=== PATIENT | male | born 1960 | race Caucasian/White ===

== ENCOUNTER 2017-10-03 19:55 | Inpatient (IN) | payer OTHER ==
[~2017-10-03] VITALS: Ht 182.9 cm; Wt 72.6 kg
--- NOTE | 2017-10-04 01:45 | NUR ---
PRE-ADMISSION NOTE VS BP-132/96 P-106 T- 98.1 R-18 PA-0/10. SpO2 AT 93% IN RA. PATIENT AMBULATORY. SPEECH IS CLEAR , DELAYED IN RESPONSE BUT ABLE TO ANSWER QUESTIONS APPROPRIATELY. PATIENT DOES NOT HAVE ALLERGY TO FOOD OR MEDICATION. NO SEIZURE HISTORY. PATIENT IS HERE FOR ALCOHOL (VODKA). WILL CONTINUE ADMISSION ON 3RD FLOOR.
--- NOTE | 2017-10-04 02:07 | NUR ---
ADMISSION NOTE PATIENT IS A 56 YEAR OLD MALE WHO PRESENTS TO [facility] [place] FOR MEDICALLY SUPERVISED WITHDRAWAL FROM ALCOHOL (VODKA). HEIGHT IS 6'0 AND WEIGHT IS 160 LBS. BODY CHECK DONE . SKIN WARM TO TOUCH. NO SKIN BREAKDOWN. LUNGS CLEAR AND ABDOMEN SOFT AND NON-DISTENDED. BOWEL SOUNDS ACTIVE IN ALL QUADRANT. RESPIRATION EVEN AND UNLABORED. NO SOB. PATIENTS PULSE AND O2 CHECKED. P-100 AND SpO2- 98% IN RA. PATIENT REPORTS PMH OF ANXIETY, LEFT HIP AND REPLACEMENT . NO SEIZURE HISTORY. PATIENT REQUESTED TO BE FULL CODE AND REGULAR DIET. PATIENT IS SEEKING FOR TREATMENT BECAUSE I WANT TO MAKE IT RIGHT, HE STATES. PATIENTS DRUG OF CHOICE IS ALCOHOL (VODKA). HE STARTED DRINKING AT AGE 16. HE DRINKS 375 ML DAILY FOR THE PAST 10 WEEKS. LAST DRINK WAS 375 ML OF VODKA PRIOR TO ADMISSION. HE WAS IN [facility] LAST YEAR FOR 30 DAYS. 8 MONTHS IS HIS LONGEST PERIOD OF SOBRIETY WHICH WAS LAST YEAR. PATIENT DOES NOT HAVE PCP. HE LIVES WITH A FRIEND AND HE'S IN RESTAURANT BUSINESS. PATIENT DOES NOT SMOKE CIGARETTE. PATIENT DOESN'T HAVE HOME MEDICATION. PATIENT PRESENTS WITH DEPRESSED MOOD, DISHEVELED, UNKEMPT, RESTRICTED, UNSHAVEN, FLUSHED FACE, ANXIETY, INSOMNIA AND FATIGUE. CIWA 6. PATIENT ORIENTED TO SURROUNDINGS AND HOW TO USE CALL LIGHT. EXPLAINED UNIT, SMOKING POLICIES AND [id number] VS. SAFETY MEASURES IN PLACE. CALL LIGHT IN REACH. WILL CONTINUE TO MONITOR. Addendum: 10/04/17 at 0632 by RODNEY YOUSSEF LVN PATIENT WAS INTOXICATED UPON ADMISSION .
[2017-10-04] MEDS ORDERED: MAG HYDROX/AL HYDROX/SIMETH 30 ML LIQUID UDC PO PRN (02:15)
[2017-10-04] MEDS ORDERED: LOPERAMIDE HCL 2 MG CAPSULE PO PRN ×2 (02:15)
[2017-10-04] MEDS ORDERED: MIRALAX 17 GM POWD.PACK PO PRN (02:15)
[2017-10-04] MEDS ORDERED: MAGNESIUM HYDROXIDE 30 ML LIQUID UDC PO PRN (02:15)
[2017-10-04] MEDS ORDERED: THIAMINE HCL 200 MG/2 ML VIAL IM ONE (02:15)
[2017-10-04] MEDS ORDERED: ONDANSETRON 4 MG/2 ML VIAL IM PRN (02:15)
[2017-10-04] MEDS ORDERED: LORAZEPAM 1 MG TABLET PO PRN (02:15)
[2017-10-04] MEDS ORDERED: DICYCLOMINE HCL 20 MG TABLET PO PRN (02:15)
[2017-10-04] MEDS ORDERED: ACETAMINOPHEN 325 MG TABLET PO PRN (02:15)
[2017-10-04] MEDS ORDERED: ONDANSETRON ODT 4 MG TAB.RAPDIS SL PRN (02:15)
[2017-10-04] MEDS ORDERED: IBUPROFEN 400 MG TABLET PO PRN (02:15)
[2017-10-04] MEDS ORDERED: HYDROXYZINE PAMOATE 25 MG CAPSULE PO PRN (02:15)
[2017-10-04] MEDS ORDERED: LORAZEPAM 2 MG/1 ML VIAL IM PRN (02:15)
[2017-10-04 02:23] LABS: BASOPHILS # (AUTO) 0.1 K/uL (0.0-8.0); BASOPHILS % (AUTO) 2.3 % (0.0-2.0); EOSINOPHILS # (AUTO) 0.1 K/uL (0.0-0.7); EOSINOPHILS % (AUTO) 1.3 % (0.0-7.0); HEMATOCRIT 47.2 % (36.7-47.1); HEMOGLOBIN 16.2 g/dL (12.5-16.3); LYMPHOCYTES # (AUTO) 2.9 K/uL (20.0-40.0); LYMPHOCYTES % (AUTO) 49.3 % (20.5-51.5); MEAN CORPUSCULAR HEMOGLOBIN 33.4 uug (23.8-33.4); MEAN CORPUSCULAR HGB CONC 34 g/dL (32.5-36.3); MEAN CORPUSCULAR VOLUME 97.4 fL (73.0-96.2); MONOCYTES # (AUTO) 0.8 K/uL (2.0-10.0); MONOCYTES % (AUTO) 12.9 % (0.0-11.0); NEUTROPHILS % (AUTO) 34.2 % (38.5-71.5); PLATELET COUNT (AUTO) 382 K/uL (152-348); RED BLOOD CELL COUNT(AUTO) 4.85 MIL/uL (4.06-5.63)
[2017-10-04 02:36] LABS: BILIRUBIN,TOTAL 0.4 mg/dL (0.2-1.0); CREATININE 0.9 mg/dL (0.6-1.3); MAGNESIUM 2.1 mg/dL (1.8-2.4); POTASSIUM 4.4 mmol/L (3.5-5.1); TOTAL PROTEIN, SERUM 8.7 g/dL (6.4-8.2)
[2017-10-04] MEDS: diphenhydrAMINE 50 MG CAPSULE PO PRN ×2 (02:42→22:02)
--- NOTE | 2017-10-04 02:42 | NUR ---
PRN BENADRYL ADMINISTRATION PATIENT REQUESTS FOR SLEEP AID. WILL MONITOR FOR EFFECTIVENESS
[2017-10-04 02:45] LABS: THYROID STIMULATING HORMONE 2.122 mIU/mL (0.358-3.740)
[2017-10-04 02:47] LABS: *AMPHETAMINE, URINE NEGATIVE (NEGATIVE); *BARBITURATE, URINE NEGATIVE (NEGATIVE); *CANNABINOID, URINE NEGATIVE (NEGATIVE); *COCCAINE, URINE NEGATIVE (NEGATIVE); *OPIATE, URINE NEGATIVE (NEGATIVE); *PHENCYCLIDINE SCREEN,URINE NEGATIVE (NEGATIVE)
--- NOTE | 2017-10-04 03:42 | NUR ---
PRN BENADRYL RE-ASSESSMENT PATIENT IN BED WITH EYES CLOSED. RESPIRATION EVEN AND UNLABORED. SAFETY MEASURES IN PLACE. CALL LIGHT IN REACH. WILL CONTINUE TO MONITOR
[2017-10-04 04:00] VITALS: BP 107/80
--- NOTE | 2017-10-04 04:00 | NUR ---
CIWA DEFERRED PATIENT IN BED WITH EYES CLOSED. RESPIRATION EVEN AND UNLABORED. SAFETY MEASURES IN PLACE. CALL LIGHT IN REACH. WILL CONTINUE TO MONITOR
--- NOTE | 2017-10-04 07:17 | NUR ---
END OF SHIFT NOTE PATIENT SLEPT 2 HOURS. FLUID INTAKE 500 ML. VOIDED X 1 . NO BM. PATIENT NEWLY ADMITTED FOR ETOH WITHDRAWAL. MONITORED PATIENT THROUGHOUT SHIFT. PATIENT WAS GIVEN PRN BENADRYL FOR SLEEP AT 0242. ETHYL ALCOHOL 0.33% UPON ADMISSION. PATIENT REFUSED VIT B 1 INJECTION. REFUSED PNEUMONIA VACCINE. CONTINUE TO MONITOR FOR S/S OF WITHDRAWAL . SAFETY MEASURES IN PLACE. CALL LIGHT IN REACH. WILL CONTINUE TO MONITOR.
--- NOTE | 2017-10-04 07:30 | NUR ---
Start of Shift Preventive Maintenance Coordinator received report on 56 year old male admitted to [facility] for medical management of ETOH withdrawals. Pt endorses NKA, full code and regular diet. Pt endorses a PMH of hip replacement and PPH of anxiety. Pt has not started on taper and received Benadryl(insomnia) PRN on NOC, per report. Last CIWA 6 at 0200. Preventive Maintenance Coordinator encounters pt in pts room, resting with eyes closed, rise and fall of chest noted. Even and unlabored respirations. Bed in low position with wheels locked and side rails up x2. Will continue to monitor, support and encourage according to plan of care.
[2017-10-04 08:30] VITALS: BP 101/60
[2017-10-04] MEDS: FOLIC ACID 1 MG TABLET PO SCH (10:05)
[2017-10-04] MEDS: MULTIVITAMINS,THERAPEUTIC TABLET PO SCH (10:05)
[2017-10-04] MEDS: LORAZEPAM 1 MG TABLET PO PRN ×2 (10:05→12:33)
[2017-10-04] MEDS: THIAMINE HCL 100 MG TABLET PO SCH (10:05)
--- NOTE | 2017-10-04 10:05 | NUR ---
ELDON Hudson Analytical Scientist assessed pt with CIWA 16 and administered medication to order. With pt tolerating well. Will continue to monitor, support and encourage according to plan of care
--- NOTE | 2017-10-04 11:05 | NUR ---
PRN Re-Assessment Pt endorses some relief, less tremulous, decreased anxiety, and decreased restlessness/agitation. Will continue to monitor, support and encourage according to plan of care.
[2017-10-04 12:28] VITALS: BP 143/96
--- NOTE | 2017-10-04 12:33 | NUR ---
PRN Ativan(2mg) Pt complain of anxiety, restlessness, agitation and is tremulous. CIWA 17, administered medication per order with pt tolerating well. Will continue to monitor, support and encourage according to plan of care.
[2017-10-04] MEDS: LORAZEPAM 1 MG TABLET PO SCH ×3 (13:00→20:48)
--- NOTE | 2017-10-04 13:00 | NUR ---
1300 Ativan Held Air Tool Operator did not administer scheduled Ativan d/t having administered 2mg at 1233 and another scheduled dose at 1500. Pt is stable and in no distress. MD aware. Will continue to monitor, support and encourage according to plan of care.
[2017-10-04] MEDS ORDERED: LORAZEPAM 1 MG TABLET PO SCH (15:00)
[2017-10-04 16:30] VITALS: BP 133/92
--- NOTE | 2017-10-04 19:00 | NUR ---
End of Shift Polisher Numeral provided report on 56 year old male admitted to [facility] for medical management of ETOH withdrawals. Pt endorses NKA, full code and regular diet. Pt endorses a PMH of hip replacement and PPH of anxiety. Pt started on Ativan taper, tolerating well with last CIWA 10. Pt administered Ativan 2mg(withdrawals) x2 this shift. Pt is A/O x4, was very confused and disorganized this am. Disoriented to date and place. Pt has cleared and is happy he is oriented. Pt is calm and cooperative, quiet and withdrawn. Flat affect with depressed mood. Anxious and diaphoretic, complains of moderate symptoms. Bed in low position with wheels locked and side rails up x2.
[2017-10-04 20:00] VITALS: BP 141/88
--- NOTE | 2017-10-04 20:00 | NUR ---
START OF SHIFT NOTE RECEIVED REPORT FROM DAY SHIFT NURSE. PATIENT IS A 56 YEAR OLD MALE ADMITTED FOR ETOH WITHDRAWAL. PATIENT STARTED ON ATIVAN TAPER IN AM. PATIENT WAS GIVEN PRN ATIVAN X 2. LAST CIWA 10. PATIENT UNSHAVEN, ODOROUS, FLUSHED FACE, ANXIOUS , RESTLESS, BILATERAL HAND TREMORS AND BACK PAIN. ENCOURAGE FLUIDS . SAFETY MEASURES IN PLACE. CALL LIGHT IN REACH. WILL CONTINUE TO MONITOR.
--- NOTE | 2017-10-04 20:48 | NUR ---
PRN MOTRIN ADMINISTRATION PATIENT C/O BACK PAIN. WILL MONITOR FOR EFFECTIVENESS
--- NOTE | 2017-10-04 21:48 | NUR ---
PRN MOTRIN RE-ASSESSMENT PATIENT STATES MOTRIN IS HELPFUL. NO PAIN AT THIS TIME.
--- NOTE | 2017-10-04 22:02 | NUR ---
PRN BENADRYL ADMINISTRATION PATIENT REQUESTS FOR SLEEP AID. WILL MONITOR FOR EFFECTIVENESS
--- NOTE | 2017-10-04 22:02 | NUR ---
ELDON MOTRIN ADMINISTRATION PATIENT C/O BACK PAIN. WILL MONITOR FOR EFFECTIVENESS Addendum: 10/05/17 at 0329 by RODNEY YOUSSEF LVN ERROR : DUPLICATE
--- NOTE | 2017-10-04 23:02 | NUR ---
PRN BENADRYL RE-ASSESSMENT PATIENT IN BED WITH EYES CLOSED. RESPIRATION EVEN AND UNLABORED. WILL CONTINUE TO MONITOR
[2017-10-05] VITALS: BP 122/78
--- NOTE | 2017-10-05 | NUR ---
CIWA DEFERRED PATIENT IN BED WITH EYES CLOSED. RESPIRATION EVEN AND UNLABORED. WILL CONTINUE TO MONITOR
--- NOTE | 2017-10-05 04:00 | NUR ---
CIWA DEFERRED PATIENT IN BED WITH EYES CLOSED. RESPIRATION EVEN AND UNLABORED. VS REFUSED. WILL CONTINUE TO MONITOR
[2017-10-05 07:06] LABS: HEPATITIS B SURFACE AG Negative (Negative)
--- NOTE | 2017-10-05 07:10 | NUR ---
END OF SHIFT NOTE PATIENT SLEPT 8 HOURS. FLUID INTAKE 3,000 ML. VOIDED X 4. BM X 2. MONITORED PATIENT THROUGHOUT SHIFT. SCHEDULED MEDICATION AND ATIVAN TAPER, TOLERATED WELL AND NO ADVERSE REACTION. PATIENT ANXIOUS , RESTLESS, BILATERAL HAND TREMORS AND C/O BACK PAIN BEGINNING OF SHIFT. PATIENT WAS GIVEN PRN MOTRIN FOR BACK PAIN AT 2047 AND PRN BENADRYL FOR SLEEP AT 2201. PATIENT TENDS TO BE ISOLATIVE. HE STAYS IN THE ROOM MOST OF THE SHIFT. ENCOURAGE FLUIDS AND TO ATTEND GROUPS. SAFETY MEASURES IN PLACE. CALL LIGHT IN REACH. WILL CONTINUE TO MONITOR. LAST CIWA 10.
--- NOTE | 2017-10-05 07:30 | NUR ---
START OF SHIFT Pt is a 56 yr old male, A&Ox4. pt was admitted on 10/04/17 for ETOH w/d and is on a Ativan taper as ordered. Received report from aws solution architect nurse. Pt received Benadryl PRN and Motrin PRN during the night. Medication was effective. Pt slept for 8 hrs. Last CIWA score was 10 at 1999. Pt is currently in bed sleeping with respirations even and unlabored. Skin is intact, warm and moist to touch. Pt is on fall and seizure precautions. Call light is within reach. Will continue to monitor.
[2017-10-05 08:00] VITALS: BP 134/92
[2017-10-05] MEDS: MULTIVITAMINS,THERAPEUTIC TABLET PO SCH (08:58)
[2017-10-05] MEDS: THIAMINE HCL 100 MG TABLET PO SCH (08:59)
[2017-10-05] MEDS: FOLIC ACID 1 MG TABLET PO SCH (08:59)
[2017-10-05] MEDS: LORAZEPAM 1 MG TABLET PO SCH ×3 (08:59→17:07)
[2017-10-05] MEDS ORDERED: TUBERCULIN,PURIF.PROT.DERIV. 5 TU/0.1 ML TEST ID ONE (09:00)
--- NOTE | 2017-10-05 09:00 | NUR ---
NSG NOTES Pt is awake, alert and oriented x4. Pt is noted with anxiety m/b difficulty staying still and is noted with flat affect. facial sweats and fine tremors are observed. Pt is c/o mild nausea but denies any episodes of vomiting. Pt received Ativan 1mg PO as schedule at 0900. Medication shirley well. encouraged increase fluid intake for hydration. Safety precautions observed. Call light is within reach. Will continue to monitor.
[2017-10-05 12:00] VITALS: BP 131/90
[2017-10-05] MEDS: CLONIDINE HCL 0.1 MG TABLET PO PRN ×2 (12:39→20:35)
--- NOTE | 2017-10-05 12:39 | NUR ---
PRN GIVEN Pt c/o increase anxiety. Pt is noted with facial sweats and flushed. Clonidine 0.1mg PO PRN was given as ordered. Encouraged increase fluid intake for hydration. Will continue to monitor.
--- NOTE | 2017-10-05 13:39 | NUR ---
PRN RE-ASSESSMENT Clonidine 0.1mg PO PRN was effective. Pt continues to c/o anxiety but is able to cope with anxiety level. Will continue to monitor.
[2017-10-05 16:00] VITALS: BP 140/96
--- NOTE | 2017-10-05 19:00 | NUR ---
Start of Shift Patient Received. Patient is noted in his bed sleeping. Breathing even and non labored. Per endorsement, Patient continues on a modified Ativan taper. He received PRN Clonidine for elevated blood pressure with medication noted to be effective. He is being monitored for episodes of confusion with no episodes noted during shift. Last noted CIWA 14. Patient is noted to be disheveled with worried affect. All needs attended to promptly. Will continue plan of care as ordered.
--- NOTE | 2017-10-05 19:07 | NUR ---
END OF SHIFT Pt is a 56 yr old male, AA&Ox4, Pt was admitted on 10/04/17 for ETOH withdrawal and is on a Ativan taper as ordered. Medication shirley well. Pt has been cooperative with medication regimen. Pt was observed attending group therapy. Pt was c/o anxiety, sweats, chills and mild nausea. Fine tremors are seen on bilateral hands. Skin is intact, warm and moist to touch. Pt was given Clonidine 0.1mg PO PRN at 1239 for anxiety, medication was effective. Last CIWA score was 14 at 1600 Pt was encouraged increase fluid intake for hydration. Safety precautions observed. Call light is within reach.
[2017-10-05 20:23] VITALS: BP 136/86
[2017-10-05] MEDS: diphenhydrAMINE 50 MG CAPSULE PO PRN (20:35)
--- NOTE | 2017-10-05 20:37 | NUR ---
PRN Medication Administration Patient is noted with increased tremors, verbalizing increased sweats, increased anxiety. Patient also verbalizes inability of falling asleep and states "i just feel restless." PRN Clonidine and Benadryl administered with routine medication. Will continue to monitor.
[2017-10-05] MEDS ORDERED: LORAZEPAM 1 MG TABLET PO SCH (21:00)
[2017-10-05 21:45] VITALS: BP 132/87
[2017-10-05] MEDS: LORAZEPAM 1 MG TABLET PO PRN (21:47)
--- NOTE | 2017-10-05 21:49 | NUR ---
PRN Medication Reassessment/PRN Medication Administration Patient is noted awake and approached the nursing station. Patient verbalized "are my friends here to pick me up yet?" Patient is noted with increased confusion, tremulous, verbalizing light sensitivity, increased anxiety, increased agitation. CIWA noted to be 23. PRN Ativan 2 mg administered. Patient received PRN Benadryl and Clonidine with Benadryl noted to be not effective. All needs attended to promptly. Will continue to monitor.
--- NOTE | 2017-10-05 22:37 | NUR ---
1:1 Sitter Patient continues with intermittent confusion. 1:1 Sitter placed for safety.
--- NOTE | 2017-10-05 22:50 | NUR ---
PRN Medication Reassessment/PRN Medication Administration Patient was given PRN Ativan 2mg for increased confusion, anxiety, tremulous, and increased restlessness. PRN Ativan 2mg noted not effective. Patient continues to be restless, increased anxiety, intermitted auditory hallucinations, and tremulous. PRN Ativan 1mg administered. remains on 1:1 for safety. Will continue to monitor.
[2017-10-05] MEDS ORDERED: LORAZEPAM 1 MG TABLET PO ONE (23:45)
--- NOTE | 2017-10-05 23:55 | NUR ---
PRN Medication reassessment/PRN Medication Administration Patient was given PRN Ativan 1mg for increased anxiety, restlessness, increased auditory hallucinations, and noted to be tremulous. PRN Ativan 1mg not effective. MD made aware with onetime dose of Ativan 2mg to be given. CIWA noted to be 23. Will continue to monitor.
[2017-10-06] VITALS: BP 133/85
[2017-10-06] MEDS ORDERED: QUETIAPINE FUMARATE 100 MG TABLET PO ONE (01:30)
--- NOTE | 2017-10-06 01:30 | NUR ---
PRN Medication Reassessment/One time dose of Seroquel Patient was given PRN Ativan 2mg for elevated CIWA of 23. He is noted with increased anxiety, restlessness, increased auditory and visual hallucinations, increased tremulous. Relayed to Psychiatrist with new order for onetime dose of Seroquel 150mg. Patient remains on 1:1 for safety. Will continue to monitor.
[2017-10-06] MEDS: LORAZEPAM 1 MG TABLET PO PRN (03:48)
--- NOTE | 2017-10-06 03:48 | NUR ---
PRN Medication Administration Patient is noted with auditory hallucinations, increased anxiety, agitation, tremulous, and restlessness. CIWA noted to be 20. PRN Ativan 2mg administered. Will continue to monitor.
[2017-10-06 04:45] VITALS: BP 124/79
--- NOTE | 2017-10-06 04:50 | NUR ---
PRN Medication Reassessment Patient continues with intermittent confusion, tremulous, increased anxiety, agitation, and restlessness. Patient is noted to sleep but then is awakened and questioning "how did i get here? How do I get home? I need to get home to my girlfriend." Patient is able to be reoriented to place, day and time. Patient is cooperative and noted to comply. No increased behaviors noted. Will continue to monitor.
--- NOTE | 2017-10-06 07:19 | NUR ---
End of Shift Patient is noted in bed with his eyes close. Patient continues on a modified Ativan taper. Patient is noted with increased confusion, intermittent auditory and visual hallucinations, increased anxiety, agitation, and tremulous. Patient is able to be reoriented to place, situation, and day. He received multiple PRN medications: Clonidine, Benadryl, Ativan 2mg x3, Ativan 1mg x1, and Seroquel 150mg. Last noted CIWA 18. Patient noted to sleep a total of 3 hours. All needs attended to promptly. Will endorse to continue plan of care as ordered.
--- NOTE | 2017-10-06 07:35 | NUR ---
START OF SHIFT Pt is a 56 yr old male, AA& Oriented to person, place and situation. Pt is still noted with episodes of confusion. Pt was admitted on 10/04/17 for ETOH w/d and is on a Ativan taper as ordered. Received report from lieutenant shift supervisor nurse. Pt was noted with increase confusion and noted with visual and auditory hallucinations. Pt was placed on 1:1 for safety. Pt received Clonidine PRN, Benadryl PRN Ativan 2mg PO PRN (x3) and Ativan 1mg PO PRN (x1) and Seroquel 150mg PO once during the night. Pt had difficulty sleeping during the night. Pt is currently awake and is noted with anxiety m/b difficulty staying still. Tremors are noted on bilateral hands and facial sweats are noted. Pt was encouraged increase fluid intake for hydration. Pt is on fall and seizure precautions. Call light is within reach. Will continue to monitor.
[2017-10-06 08:00] VITALS: BP 138/84
[2017-10-06] MEDS: THIAMINE HCL 100 MG TABLET PO SCH (08:48)
[2017-10-06] MEDS: MULTIVITAMINS,THERAPEUTIC TABLET PO SCH (08:48)
[2017-10-06] MEDS: LORAZEPAM 1 MG TABLET PO SCH ×2 (08:48→14:59)
[2017-10-06] MEDS: FOLIC ACID 1 MG TABLET PO SCH (08:48)
--- NOTE | 2017-10-06 09:54 | NUR ---
MD COMMUNICATION Pt is noted with increase confusion. Dr. Washington was made aware with new order for Ativan 2mg PO once for anxiety and confusion. New order was noted and cared out.
[2017-10-06] MEDS ORDERED: LORAZEPAM 1 MG TABLET PO ONE (10:00)
--- NOTE | 2017-10-06 10:06 | NUR ---
BEHAVIORAL NOTE During medication administration, pt was observed smelling his drink prior to taking the medication. When the pt was asked by the commercial underwriter the reasoning for his behavior, the pt became quiet and refused to answer the question and consumed the medication as ordered. Pt's 1:1 sitter later stated that pt was stating his was being poisoned through his drinks. Pt was redirected by sitter stating it was a new and sealed drink. Dr. Washington was made aware. Will continue to f/u.
--- NOTE | 2017-10-06 11:00 | NUR ---
ATIVAN RE-ASSESSMENT Ativan 2mg PO x1 was effective. Pt is still noted with periods of confusions. Pt is alert and oriented to person, time and situation. Pt remains on 1:1 for safety. Will continue to monitor.
[2017-10-06 12:09] VITALS: BP 131/97
--- NOTE | 2017-10-06 15:54 | NUR ---
Client was prompted to attend group counseling sessions.
[2017-10-06 16:00] VITALS: BP 100/57
--- NOTE | 2017-10-06 18:57 | NUR ---
END OF SHIFT Pt is a 56 yr old male, AA&O to person, time and situation. Pt was admitted on 10/04/17 for ETOH withdrawal and is on 5 day Ativan taper as ordered. Medication shirley well. Pt has been observed with periods of confusion and was unable to recall place and situation in the morning. Pt is noted with anxiety and is observed fearful. Fine tremors are noted on bilateral hands. Skin is intact, warm and moist to touch. Pt received Ativan 2mg PO x1 at 1005. Medication was effective. Pt was seen by Dr. Gorman with new order for Seroquel 100mg HS. Pt remains on 1:1 for safety. Last CIWA score was 9 at 1600 Pt was encouraged increase fluid intake for hydration. Safety precautions observed. Call light is within reach.
--- NOTE | 2017-10-06 19:00 | NUR ---
Start of Shift Patient Received. Patient is in his room sleeping. Breathing even and non labored. Per endorsement, patient continues on a 5 day Ativan taper. He is placed on 1:1 for safety and is noted with intermittent confusion. He was seen by MD with one time dose of Ativan 2mg, new routine order for Neurontin, and seen by psychiatrist with new order for Seroquel routine QHS. No PRN medications administered. Last noted CIWA 9. All needs attended to promptly. Will continue plan of care as ordered.
[2017-10-06] MEDS ORDERED: LORAZEPAM 1 MG TABLET PO PRN ×2 (20:15)
[2017-10-06 20:35] VITALS: BP 121/89
[2017-10-06] MEDS: QUETIAPINE FUMARATE 100 MG TABLET PO SCH (20:56)
[2017-10-06] MEDS: GABAPENTIN 300 MG CAPSULE PO SCH (20:56)
[2017-10-06] MEDS ORDERED: LORAZEPAM 1 MG TABLET PO SCH (21:00)
[2017-10-07 00:15] VITALS: BP 123/82
[2017-10-07] MEDS: diphenhydrAMINE 50 MG CAPSULE PO PRN (01:47)
--- NOTE | 2017-10-07 01:59 | NUR ---
PRN Medication Administration Patient is noted awake, alert and oriented x4. Breathing even and non labored. He is noted with increased anxiety, restlessness, increased sweats, and tremulous. Patient is verbalizing inability of falling asleep. CIWA noted to be 12. PRN Ativan 1mg and Benadryl administered. Will continue to monitor.
--- NOTE | 2017-10-07 03:00 | NUR ---
PRN Medication Reassessment Patient is noted in bed sleeping. Breathing even and non labored. No signs of restlessness or discomfort noted. Patient received PRN Ativan 1mg and Benadryl with medications noted to be effective. Will continue to monitor.
[2017-10-07 04:30] VITALS: BP 122/78
--- NOTE | 2017-10-07 07:10 | NUR ---
End of Shift Patient is in bed sleeping. Breathing even and non labored. Patient continues on a modified 5 day Ativan taper. He continues on 1:1 for safety with no episodes of confusion noted but continues to be tremulous. Patient received PRN Ativan 1mg for CIWA of 12 and PRN Benadryl for inability of falling back to sleep. Last noted CIWA 12. All needs attended to promptly. Will endorse to continue plan of care as ordered.
--- NOTE | 2017-10-07 07:30 | NUR ---
START OF SHIFT Pt is a 56 yr old male, AA& O to person, place, time and situation. Pt was admitted on 10/04/17 for ETOH w/d and is on a Ativan taper as ordered. Received report from material handler 2nd shift nurse. Pt received Ativan 1mg PO PRN and Benadryl PO PRN during the night. medication was effective. Pt slept for 6 hrs. Last CIWA score was 12. Pt is noted with tremors on BUE. Facial sweats are observed this morning. Pt was encouraged increase fluid intake for hydration. Pt remains on 1:1 for safety. Safety precautions observed. Call light is within reach. Will continue to monitor.
[2017-10-07 08:00] VITALS: BP 117/80
[2017-10-07] MEDS ORDERED: LORAZEPAM 1 MG TABLET PO SCH (09:00)
[2017-10-07] MEDS: THIAMINE HCL 100 MG TABLET PO SCH (09:08)
[2017-10-07] MEDS: LORAZEPAM 1 MG TABLET PO SCH ×3 (09:08→21:02)
[2017-10-07] MEDS: MULTIVITAMINS,THERAPEUTIC TABLET PO SCH (09:08)
[2017-10-07] MEDS: GABAPENTIN 300 MG CAPSULE PO SCH ×3 (09:08→21:01)
[2017-10-07] MEDS: FOLIC ACID 1 MG TABLET PO SCH (09:08)
[2017-10-07 12:00] VITALS: BP 132/88
[2017-10-07 16:00] VITALS: BP 129/84
[2017-10-07] MEDS ORDERED: DIPH50CA37 PO (18:18)
[2017-10-07] MEDS ORDERED: CLON0.1T14 PO (18:18)
[2017-10-07] MEDS ORDERED: IBUP-1953 PO (18:18)
[2017-10-07] MEDS ORDERED: GABA-534 PO (18:18)
--- NOTE | 2017-10-07 19:13 | NUR ---
END OF SHIFT Pt is a 56 yr old male, AA&Ox4. Pt was admitted on 10/04/17 for ETOH withdrawal and is on 5 day Ativan taper as ordered. Medication shirley well. Pt has been cooperative with medication regimen and plan of care. Pt was noted with steady gait and denies any episodes of hallucinations. 1:1 sitter was discontinued per Dr. Washington. Pt c/o anxiety during the day. Tremors are noted on BUE. Skin is intact, warm and moist to touch. No PRNs were given during the day. Last CIWA score was 9 at 1600. Pt was encouraged increase fluid intake for hydration. Safety precautions observed. Call light is within reach.
[2017-10-07 20:00] VITALS: BP 136/93
--- NOTE | 2017-10-07 20:00 | NUR ---
CIWA deferred CIWA deferred due to the px is asleep, to assess if the px is awake per doctor's order. We'll continue to monitor.
--- NOTE | 2017-10-07 20:00 | NUR ---
Start of Shift Note Received 56 y/o male px, admitted for medically supervised withdrawal from ETOH. Px is placed on 5 day Ativan taper. Px is tolerating it. Last reported CIWA 9 by AM shift nurse. During the rounds at 1999, px is asleep on bed in left side lying position. Bed in lowest position, side rails up 2x, and call light within reach. We'll continue to monitor.
--- NOTE | 2017-10-07 20:30 | NUR ---
Px wakes up Px wakes up. Px appears disheveled and unshaven. Px states "My anxiety is 710." Px has halitosis. Bilateral hand tremors noted. We'll continue to monitor.
[2017-10-07] MEDS: QUETIAPINE FUMARATE 100 MG TABLET PO SCH (21:02)
[2017-10-08] VITALS: BP 129/85
[2017-10-08 04:00] VITALS: BP 122/81
--- NOTE | 2017-10-08 04:00 | NUR ---
CIWA deferred CIWA deferred at 0000 and 0400 due to the px is asleep, to assess if the px is awake per doctor's order. We'll continue to monitor.
--- NOTE | 2017-10-08 07:00 | NUR ---
End of Shift Note During the shift, px didn't received any PRN medication. Px slept well for 9 hours total. Px's oral intake is 1,200 ml, voided 3x without BM. At 0630, px is asleep on bed in left side lying position. Last CIWA 8. Bed in lowest position, side rails up 2x, and call light within reach. We'll continue to monitor. Px endorsed to AM shift nurse.
--- NOTE | 2017-10-08 07:07 | NUR ---
Start of Shift Notes: Received patient in his room. Laying in bed with eyes closed. Arousable to his name. Oriented x 4. Denies S/I or H/I noted. He appears disheveled. Encouraged maintenance of personal hygiene. Shower was encouraged. Patient states "I just woke up. I don't know what I feel yet." Patient is a 56 year old male admitted for ETOH withdrawal who was placed on a 5-day Ativan taper as ordered. No adverse reactions noted. Has past medical hx of anxiety and left hip replacement. Educated patient on his current plan of care for the day and his medication regimen. Encouraged oral fluid intake and encouraged group participation to learn new skills to prevent relapse. Last CIWA 8. No PRNs given during the night. Slept for 8 hours. Will continue to monitor closely.
[2017-10-08 08:00] VITALS: BP 111/74
[2017-10-08] MEDS: GABAPENTIN 300 MG CAPSULE PO SCH ×2 (08:14→14:17)
[2017-10-08] MEDS: THIAMINE HCL 100 MG TABLET PO SCH (08:14)
[2017-10-08] MEDS: FOLIC ACID 1 MG TABLET PO SCH (08:14)
[2017-10-08] MEDS: MULTIVITAMINS,THERAPEUTIC TABLET PO SCH (08:14)
[2017-10-08] MEDS ORDERED: LORAZEPAM 1 MG TABLET PO SCH (09:00)
[2017-10-08 12:00] VITALS: BP 138/86
[2017-10-08] MEDS: HYDROXYZINE PAMOATE 25 MG CAPSULE PO PRN ×2 (14:19→20:25)
--- NOTE | 2017-10-08 14:19 | NUR ---
Vistaril 25 mg PO given: Patient appears anxious, sweaty palms, and gross tremors. Non-pharmacological interventions provided but ineffective. Medicated patient with Vistaril 25 mg PO as ordered. Will monitor for effectiveness.
--- NOTE | 2017-10-08 15:19 | NUR ---
Re-assessment: Vistaril Patient verbalizes that PRN Vistaril was effective in relieving his anxiety. He is seen laying in bed and watching TV. He states "The anxiety is definitely gone. I feel more relaxed now for sure." PRN Vistaril was effective.
[2017-10-08 16:00] VITALS: BP 127/82
--- NOTE | 2017-10-08 19:03 | NUR ---
End of Shift Notes: Patient successfully completed his 5-day Ativan taper to manage symptoms related to ETOH withdrawal. VS monitored closely. No significant abnormalities noted. Withdrawal symptoms were closely monitored. Initial CIWA 14, patient presented with tremors, anxiety, agitation, and sweating. Denies S/I or H/I noted. No AV hallucinations noted. Vistaril 25 mg PO given at 1419 for anxiety with help after 1 hour. Last CIWA 8. Patient actively participates in group and activities. Personal grooming and hygiene was encouraged throughout the day. Patient verbalizes that Ativan was effective in reducing his withdrawal symptoms. All needs met and attended. Will continue to monitor.
--- NOTE | 2017-10-08 19:15 | NUR ---
Start of Shift Note: Patient is a 56 y.o male admitted on 10/04/17 for medically supervised withdrawal from ETOH. Patient is alert & oriented x4. Patient presented with anxiety, agitation, & fine tremors . Skin is moist/clammy. Pt Patient completed his Ativan taper and is scheduled to be discharge tomorrow to [facility]. verbalized readiness to be discharge. Last CIWA is 8. Patient received PRN Vistaril for anxiety during day shift and was effective per report. Encourage pt to increase fluid intake as tolerated . Educated patient of current plan of care for the night and medication regimen. Safety precaution in place. Bed locked in lowest position. Both side rails up. Call light within pt's reach. Will continue to monitor patient.
[2017-10-08 20:00] VITALS: BP 142/95
[2017-10-08] MEDS: QUETIAPINE FUMARATE 100 MG TABLET PO SCH (20:25)
--- NOTE | 2017-10-08 20:25 | NUR ---
PRN Vistaril Patient appears anxious and restless in bed. PRN Vistaril administered as ordered. Will monitor for effectiveness of medication.
[2017-10-08] MEDS ORDERED: GABAPENTIN 300 MG CAPSULE PO SCH (21:00)
--- NOTE | 2017-10-08 21:25 | NUR ---
PRN Reassessment Patient in bed watching TV. Pt verbalized somewhat decrease in anxiety after 1 hour of PRN administration. Will continue to monitor patient.
[2017-10-08] MEDS: diphenhydrAMINE 50 MG CAPSULE PO PRN (22:21)
[2017-10-08] MEDS: CLONIDINE HCL 0.1 MG TABLET PO PRN (22:24)
--- NOTE | 2017-10-08 22:24 | NUR ---
PRN Clonidine & Benadryl Patient complaining of inability to fall asleep. Patient sitting in bed and noted to be crying. Patient is restless & complains also of anxiety. Pt was asked if he was anxious about discharge. Pt stated "I'm just anxious about everything". PRN Clonidine & Benadryl administered as ordered. Will monitor for effectiveness of medication.
--- NOTE | 2017-10-08 23:24 | NUR ---
PRN Reassessment Patient asleep in bed and appears calm & comfortable. PRN medication effective at this time. Safety measures in place. Will continue to monitor patient.
--- NOTE | 2017-10-09 | NUR ---
Vitals/CIWA deferred Patient asleep at this time. Pt requested not to wake him up for Vitals d/t having difficulty sleeping. Vitals/CIWA deferred at this time. Respiration even & unlabored. Will continue to monitor patient.
--- NOTE | 2017-10-09 07:03 | NUR ---
End of Shift Note: Patient monitored closely during shift. Patient remains alert & oriented x4. Upon assessment, patient presented with complaints of anxiety, agitation, & fine tremors. He completed his Ativan taper and is scheduled to be discharge today to [facility]. Pt verbalized readiness to be discharge. Last COWS 7. He received PRN Vistaril & Clonidine for anxiety & Benadryl for sleep during my shift. Pt is isolative and remained in his room throughout my shift. Continue to closely monitor vitals and noted WNL. Non pharmacological intervention utilized. Pt slept for a total of 6 hours. Fluid intake: 3710 ml, Voided 7x with 1x bowel movement. All needs attended & met. Safety measures in place. Will endorse pt to day shift nurse.
--- NOTE | 2017-10-09 07:04 | NUR ---
Start of Shift Notes: Received patient in his room. Awake, alert and verbally responsive. Oriented x 4. Denies S/I or H/I noted. He appears disheveled, unhsaven, and flushed. Encouraged maintenance of personal hygiene. Shower was encouraged. Patient is a 56 year old male admitted for ETOH withdrawal who completed his 5-day Ativan taper successfully. Has past medical hx of anxiety and left hip replacement. Educated patient on the discharge process. He verbalized good understanding. Encouraged oral fluid intake. PRN Vistaril and Clonidine were given during the night. Last CIWA 7. Slept for 6 hours. Will continue to monitor closely.
[2017-10-09 08:00] VITALS: BP 106/74
[2017-10-09] MEDS: MULTIVITAMINS,THERAPEUTIC TABLET PO SCH (08:32)
[2017-10-09] MEDS: HYDROXYZINE PAMOATE 25 MG CAPSULE PO PRN (08:32)
[2017-10-09] MEDS: THIAMINE HCL 100 MG TABLET PO SCH (08:32)
--- NOTE | 2017-10-09 08:32 | NUR ---
Vistaril 25 mg PO given: Patient noted with complain of anxiety. He states "It's moderate at this time." CIWA 7 due to anxiety/agitation. VS stable. Therapeutic communication provided. Reassurance provided. Medicated patient with Vistaril 25 mg PO as ordered. Will monitor for effectiveness.
[2017-10-09] MEDS: GABAPENTIN 300 MG CAPSULE PO SCH (08:33)
[2017-10-09] MEDS: FOLIC ACID 1 MG TABLET PO SCH (08:33)
--- NOTE | 2017-10-09 09:32 | NUR ---
Re-assessment: Vistaril Patient states that PRN Vistaril was effective in reducing anxiety. He states "My anxiety is still there but a lot more tolerable at this time." PRN Vistaril was effective.
--- NOTE | 2017-10-09 09:41 | NUR ---
Discharged: Patient education provided regarding his discharge instructions. He verbalized good understanding of all teachings. CIWA 5, due to anxiety. VS stable. Denies S/I or H/I. No AV hallucinations noted. Clothings, valuables were returned to the patient. He did not bring meds from home. [employer]UN[employer] RO[employer] ATTENDANT cabinet checked. Cassette checked. Patient was escorted off the unit by LAUNDR[employer] ROOM ATTENDANT and picked up by [facility] via private care to be transported to [facility]. All needs met and attended to.
== END 2017-10-09 09:41 | disposition other institution (70) | DRG 895 ==
LOC: SRC 10-04 01:31
PROVIDERS: ADMIT Internal Medicine; ATTEND Internal Medicine
PROC: HZ2ZZZZ Detoxification Services for Substance Abuse Treatment (ICD-10-PCS; principal; 2017-10-04)
PROC: HZ41ZZZ Group Counseling for Substance Abuse Treatment, Behavioral (ICD-10-PCS; 2017-10-05)
PROC: HZ31ZZZ Individual Counseling for Substance Abuse Treatment, Behavioral (ICD-10-PCS; 2017-10-06)
DX: F10.232 Alcohol dependence with withdrawal with perceptual disturbance (principal); I15.9 Secondary hypertension, unspecified; K70.10 Alcoholic hepatitis without ascites; F41.9 Anxiety disorder, unspecified; Y90.8 Blood alcohol level of 240 mg/100 ml or more; Z96.642 Presence of left artificial hip joint; Z81.1 Family history of alcohol abuse and dependence; Z91.89 Other specified personal risk factors, not elsewhere classified; R73.9 Hyperglycemia, unspecified
CPT/HCPCS: 36415; 70030-TC; 80307; 83690; 83735; 84443; 85025; 86580; 86592; 86705; 86803; 87340; 87806; A4663; G0480; Q0163